=== PATIENT | female | born 1975 | race African-American/Black ===

== ENCOUNTER 2022-07-07 05:22 | Inpatient (IN) | payer MEDICAID ==
[~2022-07-07] VITALS: Ht 167.6 cm; Wt 100.8 kg
[~2022-07-07 05:22] MED LIST: DOCU-94 PO; IBUP800T26 PO; PHENSUP38 PR
[2022-07-07] MEDS ORDERED: HYDROcodone-ACET 5/325MG TAB PO ONE (05:45)
[2022-07-07] MEDS ORDERED: ONDANSETRON ODT 4 MG TAB PO ONE (05:45)
[2022-07-07 06:40] LABS: Basophils # (auto) 0 10 ^3/uL (0-0.2); Eosinophils # (auto) 0 10 ^3/uL (0-0.8); Hemoglobin 12.4 g/dL (12.2-16.2); Lymphocytes # (auto) 1.3 10 ^3/uL (0.4-5.4); Monocytes # (auto) 0.3 10 ^3/uL (0-1.3); Neutrophils # (auto) 2.1 10 ^3/uL (1.6-8.6); Red Cell Distribution Width 14.6 % (11.8-14.3); White Blood Cell 3.7 10^3/uL (4.4-10.8)
[2022-07-07 06:43] LABS: Basophils % (auto) 0.9 % (0.0-2.0); Eosinophils % (auto) 1.2 % (0.0-7.0); Hematocrit 37.5 % (36.0-46.0); Lymphocytes % (auto) 34.9 % (10.0-50.0); Mean Corpuscular Hemoglobin 25.6 pg (28.0-32.0); Mean Corpuscular Volume 77.7 fL (80.0-100.0); Monocytes % (auto) 6.9 % (0.0-12.0); Neutrophils % (auto) 56.1 % (37.0-80.0); Nucleated Red Blood Cells % 0.3 %; Red Blood Cells 4.82 10^6/uL (4.0-5.20)
[2022-07-07 06:51] LABS: Albumin 3.8 g/dL (3.4-5.0); Calcium 9.2 mg/dL (8.5-10.1); Potassium 3.1 mmol/L (3.5-5.1)
[2022-07-07 06:55] LABS: BUN/Creatinine Ratio 16.7 (10.0-20.0); Bilirubin, Total 0.3 mg/dL (0.2-1.0); Total Protein 7.4 g/dL (6.4-8.2)
[2022-07-07] MEDS ORDERED: KETOROLAC TROMETH 60MG/2ML VIAL IM ONE (07:00)
[2022-07-07] MEDS ORDERED: PRED20TA2 PO (07:23)
[2022-07-07] MEDS ORDERED: POTASSIUM EFFERVESENT TAB 25 MEQ PO ONE (08:15)
[2022-07-07] MEDS ORDERED: PANTOPRAZOLE 40 MG TAB PO ONE (10:00)
[2022-07-07] MEDS ORDERED: predniSONE 20 MG TAB PO ONE (10:00)
[2022-07-07] MEDS ORDERED: NITROGLYCERIN 0.4 MG SL TAB SL PRN (10:30)
[2022-07-07] MEDS ORDERED: MORPHINE SULFATE INJ 2 MG/ml SYRG IV PRN (10:30)
[2022-07-07] MEDS ORDERED: HYDROcodone-ACET 5/325MG TAB PO PRN ×2 (10:45→23:45)
[2022-07-07] MEDS ORDERED: ONDANSETRON HCL 4 MG/2 ML VIAL IV PRN (10:45)
[2022-07-07] MEDS: methylPREDNISolone SOD SUCC 40 MG/ML VL IV SCH ×2 (10:50→17:50)
[2022-07-07 11:30] LABS: INR 0.99 (0.9-1.15); Partial Thromboplastin Time 28.5 sec (24.6-33.4)
[2022-07-07] MEDS: MORPHINE SULFATE INJ 2 MG/ml SYRG IV PRN (17:51)
[2022-07-07] MEDS: SOD CHL 0.45% WITH 20MEQ KCL 1,000 ML IV SCH (18:06)
[2022-07-07] MEDS: HYDROcodone-ACET 5/325MG TAB PO PRN ×2 (22:42→23:42)
[2022-07-07] MEDS: LISINOPRIL 20 MG TAB PO SCH (22:44)
[2022-07-07] MEDS: SENNA 8.6 MG TAB PO SCH (22:44)
[2022-07-07] MEDS ORDERED: MORPHINE SULFATE 4 MG/ML SYR/VIAL IV PRN (23:45)
[2022-07-07] MEDS ORDERED: GABAPENTIN 100 MG CAP PO ONE (23:45)
[2022-07-08] MEDS: SOD CHL 0.45% WITH 20MEQ KCL 1,000 ML IV SCH ×2 (00:05→10:54)
[2022-07-08] MEDS: HYDROcodone-ACET 5/325MG TAB PO PRN (00:15)
[2022-07-08 04:37] VITALS: BP 104/60
[2022-07-08] MEDS ORDERED: METO25TA93 PO (05:49)
[2022-07-08] MEDS ORDERED: DOCU-94 (05:49)
[2022-07-08] MEDS ORDERED: CHLO50TA PO (05:49)
[2022-07-08] MEDS: methylPREDNISolone SOD SUCC 40 MG/ML VL IV SCH (06:42)
[2022-07-08] MEDS: GABAPENTIN 100 MG CAP PO SCH ×2 (06:42→14:32)
[2022-07-08 08:04] LABS: Calcium 9.2 mg/dL (8.5-10.1); Magnesium 2.1 mg/dL (1.6-2.6); Potassium 3.5 mmol/L (3.5-5.1)
[2022-07-08 08:06] LABS: BUN/Creatinine Ratio 15.4 (10.0-20.0)
[2022-07-08 09:00] VITALS: BP 133/74
[2022-07-08] MEDS: LISINOPRIL 20 MG TAB PO SCH ×2 (09:19→22:00)
[2022-07-08] MEDS: methylPREDNISolone SOD SUCC 125 MG/2 ML VL IV SCH ×3 (10:56→21:55)
[2022-07-08 13:00] VITALS: BP 118/63
[2022-07-08 17:00] VITALS: BP 103/50
[2022-07-08] MEDS: GABAPENTIN 300 MG CAP PO SCH (21:56)
[2022-07-08] MEDS: SENNA 8.6 MG TAB PO SCH (21:56)
[2022-07-08 23:24] VITALS: BP 100/50
[2022-07-09] MEDS: MORPHINE SULFATE INJ 2 MG/ml SYRG IV PRN ×2 (00:36→09:25)
[2022-07-09 04:56] VITALS: BP 121/62
[2022-07-09] MEDS: methylPREDNISolone SOD SUCC 125 MG/2 ML VL IV SCH ×2 (06:02→14:22)
[2022-07-09] MEDS: GABAPENTIN 300 MG CAP PO SCH ×2 (06:03→14:15)
[2022-07-09 08:57] VITALS: BP 144/79
[2022-07-09] MEDS: LISINOPRIL 20 MG TAB PO SCH (09:25)
[2022-07-09 12:59] VITALS: BP 145/73
[2022-07-09] MEDS ORDERED: CYCL-838 PO (14:42)
[2022-07-09] MEDS ORDERED: PRED20TA2 PO (14:42)
[2022-07-09] MEDS ORDERED: PANT40T PO (14:42)
[2022-07-09] MEDS ORDERED: PERCOT PO (14:42)
[2022-07-09] MEDS ORDERED: GABA300C10 PO (14:42)
[2022-07-09 16:48] VITALS: BP 144/79
== END 2022-07-09 18:00 | disposition home or self-care (01) | DRG 347 ==
LOC: ER 05:22 → OVERFLOW 10:31 → CENTRAL 07-08 04:17
PROVIDERS: ADMIT Hospitalist; ATTEND Hospitalist
DX: M48.062 Spinal stenosis, lumbar region with neurogenic claudication (principal); G62.9 Polyneuropathy, unspecified; M47.26 Other spondylosis with radiculopathy, lumbar region; M51.16 Intervertebral disc disorders with radiculopathy, lumbar region; I10 Essential (primary) hypertension; M51.17 Intervertebral disc disorders with radiculopathy, lumbosacral region; Z82.49 Family history of ischemic heart disease and other diseases of the circulatory system
CPT/HCPCS: 36415; 72131; 72148; 80048; 80053; 83690; 83735; 85025; 85610; 85730; 93971; 96372; 97163; G0378; J1885; Q0162